=== PATIENT | female | born 1980 | race Caucasian/White ===

== ENCOUNTER 2020-07-08 08:53 | Emergency (ER) | payer OTHER ==
[~2020-07-08] VITALS: Ht 162.6 cm; Wt 90.7 kg
[~2020-07-08 08:53] MED LIST: IBUPROFEN 600600 M1 PO; NORCO 5-325 TA1 EACH PO; TOPAMAX 100 MG100 MG
[2020-07-08 09:57] VITALS: BP 100/70
[2020-07-08] MEDS ORDERED: ULTRAM 50MG TAB50 MG PO (11:22)
== END 2020-07-08 11:39 | disposition home or self-care (01) ==
LOC: ER 08:53
DX: S92.512A Displaced fracture of proximal phalanx of left lesser toe(s), initial encounter for closed fracture (principal); G43.909 Migraine, unspecified, not intractable, without status migrainosus; Z98.890 Other specified postprocedural states; Z87.42 Personal history of other diseases of the female genital tract; Z79.899 Other long term (current) drug therapy; Z88.0 Allergy status to penicillin; W18.09XA Striking against other object with subsequent fall, initial encounter; Y93.89 Activity, other specified; Y92.89 Other specified places as the place of occurrence of the external cause; Y99.8 Other external cause status